=== PATIENT | female | born 1970 | race Two or more races ===

== ENCOUNTER 2016-11-14 11:00 | Emergency (ER) | payer MEDICAID ==
[2016-11-14] MEDS ORDERED: IBUPROFEN 600 MG TABLET ONE (12:13)
== END 2016-11-14 12:23 | disposition home or self-care (01) ==
LOC: ED 11:00
DX: J11.1 Influenza due to unidentified influenza virus with other respiratory manifestations (principal); R51 Headache; K21.9 Gastro-esophageal reflux disease without esophagitis
CPT/HCPCS: 99282 ×2; A9270